=== PATIENT | female | born 1960 | race Caucasian/White ===

== ENCOUNTER 2017-07-06 11:04 | Day surgery (SDC) | payer BC ==
[2017-07-06] MEDS ORDERED: LIDOCAINE HCL 1% MPF SOL ONE ×2 (11:21)
[2017-07-06] MEDS ORDERED: BUPIVACAINE HCL 0.5% MPF 10 ML SOL ONE (11:21)
[2017-07-06] MEDS ORDERED: MIDAZOLAM 2 MG/2 ML SOL ONE (11:23)
[2017-07-06] MEDS ORDERED: PROPOFOL 500 MG/50 ML EMU IV ONE (11:25)
[2017-07-06] MEDS ORDERED: ONDANSETRON HCL 4 MG/2 ML SOL ONE (11:28)
[2017-07-06] MEDS ORDERED: DEXAMETHASONE 20 MG/5 ML (4 MG/ML SOL) ONE (11:28)
[2017-07-06] MEDS ORDERED: METOCLOPRAMIDE HYDROCHLORIDE 5 MG/ML SOL ONE (11:45)
[2017-07-06] MEDS ORDERED: CEFAZOLIN SODIUM 1 GM PDS ONE (12:52)
[2017-07-06 15:37] VITALS: TEMP 98.3
[2017-07-06 17:04] VITALS: BP 138/87; PULSE 88; RESP 14; O2SAT 94
== END 2017-07-06 17:55 | disposition home or self-care (01) ==
LOC: SURG 11:04
PROVIDERS: ATTEND Podiatrist
DX: M76.62 Achilles tendinitis, left leg (principal); M89.9 Disorder of bone, unspecified
CPT/HCPCS: J0690; J1100; J2250; J2405; J2765; L3260; A6402; J2001; J2704

== ENCOUNTER 2017-12-20 16:17 | Emergency (ER) | payer BC ==
[2017-12-20 17:04] VITALS: O2SAT 96
[2017-12-20] MEDS ORDERED: ACETAMINOPHEN 500 MG 500 MG TAB PO ONE (17:16)
[2017-12-20] MEDS ORDERED: ACETAMINOPHEN 500 MG 500 MG TAB ONE (17:20)
[2017-12-20 17:27] LABS: APPEARANCE,URINE Slightly Cloudy; BILIRUBIN,URINE NEGATIVE (NEGATIVE); COLOR,URINE Yellow; GLUCOSE, URINE (UA) NEGATIVE (NEGATIVE); KETONES,URINE NEGATIVE (NEGATIVE); LEUKOCYTE ESTERASE ,URINE 1+ (NEGATIVE); NITRATE,URINE NEGATIVE (NEGATIVE); OCCULT BLOOD,URINE TRACE INTACT (NEG-TRACE); PH,URINE 5.5; UROBILINOGEN,URINE 0.2 (0.2-1.0 EU)
[2017-12-20 17:47] LABS: BACTERIA 1+ (< 1+); CRYSTALS NEGATIVE (0-3 AVE/HPF); EPITHELIAL CELLS 0-1 (SQUAMOUS); RBC,URINE 0-3 (0-3AV/HPF)
[2017-12-20] MEDS ORDERED: LEVOFLOXACIN 500 MG TAB PO ONE (17:49)
[2017-12-20] MEDS ORDERED: LEVOFLOXACIN 500 MG TAB ONE (17:51)
[2017-12-20 17:58] VITALS: BP 140/92; PULSE 111; RESP 24; TEMP 100.2
== END 2017-12-20 18:07 | disposition home or self-care (01) ==
LOC: ED 16:17
DX: N39.0 Urinary tract infection, site not specified (principal); N61.1 Abscess of the breast and nipple
CPT/HCPCS: 81001; 87088; 99282; 99283; A9270-GY